=== PATIENT | male | born 1930 | race Caucasian/White ===

== ENCOUNTER 2021-05-18 20:14 | Inpatient (IN) | payer MEDICARE, BC ==
[~2021-05-18] VITALS: Ht 172.7 cm; Wt 77.7 kg
--- NOTE | 2021-05-18 20:27 | NUR ---
EKG DONE IN TRIAGE.
[2021-05-18] MEDS ORDERED: ASPIRIN 81 MG TABLET CHEW PO ONE (20:30)
[2021-05-18] MEDS ORDERED: LEVO75TA PO (20:44)
[2021-05-18] MEDS ORDERED: CELEBREX (20:44)
--- NOTE | 2021-05-18 20:44 | NUR ---
ASSUMED CARE OF PATIENT. PATIENT REPORTS CENTER CHEST PAIN 03/13 WHILE WALKING. VS STABLE. EKG DONE. 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 NSR NOTED. AT BEDSIDE. JANICE RUSS IN ROOM.
[2021-05-18] MEDS ORDERED: ATOR10TA9 PO (20:46)
[2021-05-18] MEDS ORDERED: LEVO88TA2 PO (20:48)
[2021-05-18] MEDS ORDERED: ASPIRIN 81 MG TABLET CHEW ONE (20:48)
--- NOTE | 2021-05-18 21:04 | NUR ---
REPORT GIVEN TO CLIFFORD ROBLES
[2021-05-18 21:08] LABS: BASOPHILS % (AUTO) 1 % (0-1); EOSINOPHILS % (AUTO) 4 % (1-7); LYMPHOCYTES % (AUTO) 20 % (22-44); MEAN PLATELET VOLUME 8.4 fL (7.4-10.4); MONOCYTES % (AUTO) 11 % (2-9); NEUTROPHILS % (AUTO) 65 % (42-75); PLATELET COUNT 220 x10^3/uL (130-400); RED BLOOD COUNT 4.25 x10^6/uL (4.38-5.82); RED CELL DISTRIBUTION WIDTH 13.8 % (9.4-14.8)
[2021-05-18 21:15] LABS: ALANINE AMINOTRANSFERASE 27 U/L (12-78); ALBUMIN 3.5 g/dL (3.4-5.0); ANION GAP 8 mmol/L (5-15); CALCIUM 8.9 mg/dL (8.5-10.1); CHLORIDE 108 mmol/L (98-107); CREATININE 1.75 mg/dL (0.7-1.3)
--- NOTE | 2021-05-18 21:15 | NUR ---
ASSUMED CARE OF PATIENT FROM CLIFFORD DELONG. PATIENT RESTING IN BED, NO NEEDS AT THIS TIME, CALL LIGHT IN REACH.
[2021-05-18 21:19] LABS: ALKALINE PHOSPHATASE 93 U/L (45-117); BILIRUBIN,TOTAL 0.5 mg/dL (0.2-1.0); TOTAL PROTEIN 7.4 g/dL (6.4-8.2); TROPONIN I < 0.015 ng/mL (0.000-0.045)
[2021-05-18] MEDS ORDERED: AZITHROMYCIN 500 MG in SODIUM CHLORIDE 0.9% 250 ML IV SCH (22:30)
[2021-05-18] MEDS ORDERED: CEFTRIAXONE 1,000 MG in DEXTROSE 5% 50 ML IVPB SCH (22:30)
[2021-05-18] MEDS ORDERED: ONDANSETRON 2MG/ML, 2ML IVPush PRN (23:00)
[2021-05-18] MEDS ORDERED: BISACODYL 10 MG SUPP PR PRN (23:00)
[2021-05-18] MEDS ORDERED: HEPARIN 5,000 UNITS/ML, 1ML SQ SCH (23:00)
[2021-05-18] MEDS ORDERED: ACETAMINOPHEN 325 MG TABLET PO PRN (23:00)
[2021-05-18] MEDS ORDERED: GUAIFENESIN/DM 200-20MG, 10ML UDC PO PRN (23:00)
[2021-05-18] MEDS ORDERED: NITROGLYCERIN 0.4 MG BOTTLE (25 TABS) SL PRN (23:00)
[2021-05-18] MEDS ORDERED: morphine SULFATE 10 MG/ML, 1ML IVPush PRN (23:00)
[2021-05-18] MEDS ORDERED: POLYETHYLENE GLYCOL 17 GM PACKET PO PRN (23:00)
--- NOTE | 2021-05-19 00:01 | NUR ---
PATIENT PLACED ON HOSTPIAL BED. PATIENT STATES "THIS WILL BE MUCH BETTER"
--- NOTE | 2021-05-19 02:13 | NUR ---
PATIENT AWAKE, PATIENT AMBULATES TO THE BATHROOM WITH NO ASSISTANCE.
--- NOTE | 2021-05-19 02:38 | NUR ---
PATIENT WANTED TO AMBULATE TO THE BATHROOM, ON ARRIVAL BACK TO THE ROOM, PATIENT STATES HAVING CHEST PAIN AND SOB, PATIENT STATES DURING EKG THAT HIS PAIN HAS RESOLVED, EKG COMPLETED AND REVIEWED BY ERP.
[2021-05-19 03:26] LABS: BASOPHILS % (AUTO) 1 % (0-1); EOSINOPHILS % (AUTO) 5 % (1-7); LYMPHOCYTES % (AUTO) 17 % (22-44); MEAN CORPUSCULAR HGB CONC 34.9 g/dL (33.2-36.2); MEAN PLATELET VOLUME 8.2 fL (7.4-10.4); MONOCYTES % (AUTO) 10 % (2-9); NEUTROPHILS % (AUTO) 68 % (42-75); PLATELET COUNT 202 x10^3/uL (130-400); RED BLOOD COUNT 3.97 x10^6/uL (4.38-5.82); RED CELL DISTRIBUTION WIDTH 13.3 % (9.4-14.8)
[2021-05-19 03:31] LABS: ANION GAP 5 mmol/L (5-15); CALCIUM 8.5 mg/dL (8.5-10.1); CHLORIDE 109 mmol/L (98-107); CHOLESTEROL, TOTAL 141 mg/dL (140-239); CREATININE 1.59 mg/dL (0.7-1.3); TRIGLYCERIDES 65 mg/dL (50-200); VLDL CHOLESTEROL 13 mg/dL (0-25)
[2021-05-19 03:34] LABS: CHOL/HDL RATIO 2.3; HDL CHOL % 43 % (26-37); HDL CHOLESTEROL (DIRECT) 61 mg/dL (40-60); LDL CHOLESTEROL,CALCULATED 67 mg/dL (54-169); LDL/HDL RATIO 1.1 (0.5-3.0)
[2021-05-19 03:37] LABS: TROPONIN I 0.793 ng/mL (0.000-0.045)
--- NOTE | 2021-05-19 03:39 | NUR ---
CRITICAL TROP 0.793, ADMISSION MD NOTIFIED.
[2021-05-19] MEDS ORDERED: HEPARIN 25,000 UNITS/250ML PMX 250 ML ONE (04:53)
[2021-05-19] MEDS ORDERED: HEPARIN 5,000 UNITS/ML, 1ML ONE ×2 (04:53→18:39)
[2021-05-19] MEDS ORDERED: HEPARIN 5,000 UNITS/ML, 1ML IV PRN (05:00)
[2021-05-19] MEDS ORDERED: HEPARIN 5,000 UNITS/ML, 1ML IV ONE (05:00)
--- NOTE | 2021-05-19 05:00 | NUR ---
YELLOW SLIP SENT TO PHARMACY AT THIS TIME REQUESTED SYNTHROID.
[2021-05-19] MEDS: HEPARIN 25,000 UNITS/250ML PMX 250 ML IV PRN (05:06)
--- NOTE | 2021-05-19 06:31 | NUR ---
I HAVE NOT RECEIVED THE MEDICATION THAT I REQUESTED AT 0500. JEANNETTE FROM PHARMACY STATES SHE IS UNSURE WHAT HAPPENED BUT THEY WILL GET THE MEDICATION SENT DOWN.
--- NOTE | 2021-05-19 06:55 | NUR ---
ASSISTED PATIENT WITH URINAL. DENIES ANY OTHER NEEDS AT THIS TIME.
--- NOTE | 2021-05-19 07:04 | NUR ---
REPORT GIVEN TO CLIFFORD DEXTER.
[2021-05-19] MEDS: LEVOTHYROXINE 88 MCG TABLET PO SCH (07:41)
[2021-05-19 07:46] LABS: TROPONIN I 0.622 ng/mL (0.000-0.045)
--- NOTE | 2021-05-19 08:19 | NUR ---
PT PROVIDED BREAKFAST TRAY. SITING UP EATING. VSS. SALINAS.
[2021-05-19] MEDS: SODIUM CHLORIDE FLUSH 10ML SYR IVF SCH ×2 (09:00→20:05)
[2021-05-19] MEDS: SENNA/DOCUSATE TABLET PO SCH (09:00)
--- NOTE | 2021-05-19 10:42 | NUR ---
report to mac shine.
[2021-05-19 13:20] VITALS: BP 117/72
--- NOTE | 2021-05-19 14:58 | NUR ---
TASK RN NOTE: CALL TO DR OVIEDO REGARDING PT'S TROPONIN. PER DR OVIEDO, PLAN MADE WITH NET [employer] DEVELOPER IS FOR PT TO HAVE ECHO, AND DENIES FURTHER NEEDS FOR TROPONIN MEASUREMENTS AT THIS TIME.
[2021-05-19 19:56] VITALS: BP 121/73
[2021-05-19] MEDS: ATORVASTATIN 80 MG TABLET PO SCH (20:52)
[2021-05-19] MEDS ORDERED: ASPI81TA45 PO (20:59)
[2021-05-19] MEDS ORDERED: LORA-445 PO (20:59)
[2021-05-19] MEDS ORDERED: CELE200C PO (20:59)
[2021-05-19] MEDS ORDERED: ATORVASTATIN 10 MG TABLET PO SCH (21:00)
[2021-05-20 00:59] VITALS: BP 102/59
[2021-05-20] MEDS: HEPARIN 25,000 UNITS/250ML PMX 250 ML IV PRN (02:08)
[2021-05-20] MEDS: LEVOTHYROXINE 88 MCG TABLET PO SCH (06:20)
[2021-05-20 07:57] VITALS: BP 134/84
[2021-05-20] MEDS: SENNA/DOCUSATE TABLET PO SCH (09:00)
[2021-05-20] MEDS: SODIUM CHLORIDE FLUSH 10ML SYR IVF SCH ×2 (10:03→20:42)
[2021-05-20] MEDS ORDERED: REGADENOSON 0.4 MG/5 ML SYRINGE ONE (13:07)
[2021-05-20 14:01] VITALS: BP 136/92
[2021-05-20 19:27] VITALS: BP 132/88
[2021-05-20] MEDS: HEPARIN 5,000 UNITS/ML, 1ML SQ SCH (20:42)
[2021-05-20] MEDS: ATORVASTATIN 80 MG TABLET PO SCH (20:42)
[2021-05-21 00:30] VITALS: BP 120/71
[2021-05-21] MEDS ORDERED: METOPROLOL TARTRATE 25 MG TAB PO SCH (06:00)
[2021-05-21] MEDS: LEVOTHYROXINE 88 MCG TABLET PO SCH (06:22)
[2021-05-21 06:30] LABS: ANION GAP 5 mmol/L (5-15); CALCIUM 8.4 mg/dL (8.5-10.1); CHLORIDE 109 mmol/L (98-107)
[2021-05-21 06:31] LABS: CREATININE 1.51 mg/dL (0.7-1.3)
[2021-05-21 07:37] VITALS: BP 116/75
[2021-05-21] MEDS: HEPARIN 5,000 UNITS/ML, 1ML SQ SCH (08:44)
[2021-05-21] MEDS: SENNA/DOCUSATE TABLET PO SCH (08:45)
[2021-05-21] MEDS: SODIUM CHLORIDE FLUSH 10ML SYR IVF SCH (08:45)
[2021-05-21] MEDS ORDERED: LISINOPRIL 5 MG TABLET PO SCH (09:00)
[2021-05-21] MEDS ORDERED: CLOPIDOGREL 75 MG TABLET PO SCH (09:00)
[2021-05-21] MEDS ORDERED: ATOR-2 PO (11:29)
[2021-05-21] MEDS ORDERED: METO25TA35 PO (11:29)
[2021-05-21] MEDS ORDERED: CLOP75TA PO (11:29)
[2021-05-21] MEDS ORDERED: LISI5TAB7 PO (11:29)
[2021-05-21] MEDS ORDERED: SPIR25TA PO (11:30)
== END 2021-05-21 14:32 | disposition home or self-care (01) | DRG 280 ==
LOC: ED 21:53 → EDIP 22:08 → 5SO 05-19 19:55
PROVIDERS: ADMIT Family Medicine; ATTEND Internal Medicine
DX: I21.4 Non-ST elevation (NSTEMI) myocardial infarction (principal); J18.9 Pneumonia, unspecified organism; I50.20 Unspecified systolic (congestive) heart failure; N17.9 Acute kidney failure, unspecified; D75.89 Other specified diseases of blood and blood-forming organs; E03.9 Hypothyroidism, unspecified; E78.5 Hyperlipidemia, unspecified; H91.90 Unspecified hearing loss, unspecified ear; I25.10 Atherosclerotic heart disease of native coronary artery without angina pectoris; Z66 Do not resuscitate; Z79.02 Long term (current) use of antithrombotics/antiplatelets; Z79.899 Other long term (current) drug therapy; Z85.46 Personal history of malignant neoplasm of prostate; Z95.1 Presence of aortocoronary bypass graft; Z88.2 Allergy status to sulfonamides
CPT/HCPCS: 36415; 71045; 78452; 80048; 80053; 80061; 84484; 85025; 85520; 93005; 93017; 93306; 96374; 99285; G0378; J0456; J0696; J1644; J2785; A9502; J7050